=== PATIENT | female | born 1960 | race Caucasian/White ===

== ENCOUNTER → 2016-11-20 | Outpatient (CLI) | payer OTHER, SELFPAY ==
[~2016-11-20] MED LIST: ACIPHEX20 MG PO; ALLOPURINOL300 MG; ALLOPURINOL300 MG PO; ANUSOL-HC SUPP25 M1 PR; ASPIRIN325 M1 PO; ATENOLOL PO; BACTRIM DS TABL1 TA1 PO; BIOTIN2500 MCG PO; CENTRUM SILVER PO; COLACE50 MG PO; CYMBALTA PO; DULOXETINE HCL30 MG PO; FLAGYL PO; FUROSEMIDE40 MG PO; KCL PO; LASIX PO; LORTAB 10-3251 EACH PO; LORTAB 7.5-5001 TAB PO; LOVENOX40 MG/0.4 INJ; LYRICA PO; LYRICA100 MG PO; MILK OF MAGNESIA PO; NEURONTIN800 MG PO; NORCO 10/3251 TAB PO; PERCOCET5/325 PO; PROTONIX PO; TENORMIN50 MG PO; TOPAMAX25 MG PO; VOLTAREN75 MG PO; ZOFRAN ODT4 MG PO; ZYLOPRIM100 MG PO; ZYRTEC10 M2 PO; [UNRECOGNIZED DRUG - OTHER] PO
--- NOTE | ~2016-11-20 | MR190 ---
[facility] A Service of [facility] & [facility] RADIOLOGY TEXT RESULTS PATIENT: SARAH JACQUES LOCATION: [facility] : 58 UNIT #: [id number] AGE: [address]: Rosi Tobni SEX: F ORDER DR: [id number] [facility] [address] [place], [place] [address] [id number] O MR#: [id number] Acc #: [id number] NAME: SARAH JACQUES : 1960 SEX: F STUDY DATE/TIME: 11/20/2016 14:04 UNIT: [facility] ROOM: STUDY DESCRIPTION: MR Shoulder Arthrogram Lt Attending Physician: Rosi Tobin P.A.-C. Ordering Physician: Rosi Tobin P.A.-C. Primary Care Physician: Carla Prajapati M.D. MRI CENTER REPORT This report is preliminary unless electronic signature is present. EXAM MR arthrogram left shoulder HISTORY 56-year-old female complains of left shoulder pain, weakness, decreased range of motion since July 2015. States may be used to over use of cane after knee surgery in July. No specific trauma. COMPARISON Conventional arthrogram 11/20/2016. FINDINGS Routine MR arthrogram was performed of the left shoulder following the intraarticular injection of dilute gadolinium. There is moderately advanced glenohumeral joint osteoarthritis with prominent osteophytes along the inferior posterior aspect of the humeral head. Extensive full-thickness cartilage loss noted off the glenoid and humeral head articular surface. Extensive degeneration of the posterior labrum. Contrast is visible within the glenohumeral joint and also within the subacromial subdeltoid bursa. This implies a full-thickness rotator cuff tear but a distinct site of tear is not well visualized. Patient does demonstrate diffuse rotator cuff tendinopathy with an extensive partial-thickness articular sided tear of the supraspinatus tendon which may represent a delaminating type tear. This extends over approximately 2 cm length of the supraspinatus tendon. There is apparent direct contrast imbibition within the superior aspect of the subscapularis tendon. This may be related to the joint injection or possibly a partial tear. There is evidence of glenohumeral joint synovitis but no sizeable loose bodies. The ABER view demonstrates a poorly defined anteroinferior labrum and this may be degenerated as a component of glenohumeral joint osteoarthritis. The long tendon of the biceps appears attenuated along its intraarticular aspect but appears to be intact. It is not well seen within the bicipital groove though this may be partly technical. Deltoid unremarkable. Mild STS. [facility] A Service of [facility] RADIOLOGY TEXT RESULTS PATIENT: SARAH JACQUES LOCATION: [facility] : 58 UNIT #: [id number] AGE: [address]: Rosi Tobin SEX: F ORDER DR: VAN joint arthropathy. IMPRESSION 1. Extensive supraspinatus tendinopathy with a large partial-thickness and possibly full thickness delaminating tear of the supraspinatus tendon. It is difficult to explain the presence of contrast within the subacromial-subdeltoid bursa on the basis of the MR though this may be related to either a mixed injection or a delaminating tear of the supraspinatus tendon. There is clearly no retracted full-thickness tear of the rotator cuff. The tear within the supraspinatus does extend to the articular surface and measures close to 2 cm in length and this is superimposed on tendinopathy. Again a discrete communication to the subacromial-subdeltoid bursa is not seen, though this may be related to delaminating type tear. 2. Moderately advanced glenohumeral joint osteoarthritis with glenohumeral joint synovitis. 3. Circumferential degeneration of the labrum as a component of arthritis. 4. Attenuation of the long tendon of the biceps may reflect chronic tendinopathy. 5. Focal imbibition of contrast in the superior aspect of the subscapularis tendon. I suspect this is iatrogenic related to the joint injection. This could possibly explain the presence of contrast within both the glenohumeral joint and subacromial subdeltoid bursa, possibly related to extravasation through the subscapularis. 6. Mild infraspinatus tendinopathy. Dictated by... Randolph Walls M.D. THIS IS AN ELECTRONICALLY VERIFIED REPORT Randolph Walls M.D. at 11/22/2016 9:37 AM NATA/nani TD: 11/21/2016 09:20 JOB #: [id number] MRI CENTER REPORT Page 1 of 1 COPY
--- NOTE | ~2016-11-20 | XA32 ---
[facility] A Service of [facility] & [facility] RADIOLOGY TEXT RESULTS PATIENT: SARAH JACQUES LOCATION: [facility] : 58 UNIT #: [id number] AGE: [address]: Rosi Tobin SEX: F ORDER DR: [id number] [facility] [address] [place], [place] [address] [id number] O MR#: [id number] Acc #: [id number] NAME: SARAH JACQUES. : 1960 SEX: F STUDY DATE/TIME: 11/20/2016 13:17 UNIT: [facility] ROOM: STUDY DESCRIPTION: XA Arthrogram Shoulder Lt Attending Physician: Rosi Tobin P.A.-C. Ordering Physician: Rosi Tobin P.A.-C. Primary Care Physician: Carla Prajapati M.D. MEDICAL IMAGING REPORT This report is preliminary unless electronic signature is present EXAM Left shoulder arthrogram HISTORY SUPPLIED Chronic left shoulder pain TECHNIQUE The procedure and attendant risks and options were discussed with the patient. This was performed in conjunction with the MR facility. The MR will be reported separately. The procedure risks were discussed. Skin was prepped and draped over the left shoulder joint over the lower third of the glenohumeral joint. A 22-gauge needle was advanced under fluoroscopy into the joint. Maximal sterile barrier technique was utilized including drapes and sterile gloves. Approximately 8 mL of contrast media of lidocaine was injected directly into the joint. FINDINGS The study shows a markedly irregular joint capsule particularly along the humeral attachment. The study shows what appears to be some loose bodies in the inferior aspect of the joint. The needle was removed and shoulder joint was manipulated are there is clear communication with the subdeltoid bursa. Patient was taken to MR and will be imaged separately. Please see that report. CONCLUSION Markedly abnormal shoulder arthrogram showing some features of adhesive capsulitis and also raising the question of loose bodies in the joint. Additionally the patient does have a full-thickness rotator cuff tear. Please see the MR performed on the 11/20/2016, immediately following this [facility] A Service of [facility] & [facility] RADIOLOGY TEXT RESULTS PATIENT: SARAH [facility]ACQU[id number] : 58 UNIT #: [id number] AGE: [address]: Rosi Tobin SEX: F ORDER DR: study. Dictated by... Venkata Jacobs M.D. THIS IS AN ELECTRONICALLY VERIFIED REPORT Venkata Jacobs M.D. at 11/22/2016 7:19 AM MENDY/pranav TD: 11/20/2016 17:34 JOB #: [id number] MEDICAL IMAGING REPORT Page 1 of 1 COPY
== END | disposition home or self-care (01) ==
LOC: CIVR 12:15
DX: M75.82 Other shoulder lesions, left shoulder (principal); M75.02 Adhesive capsulitis of left shoulder; M75.112 Incomplete rotator cuff tear or rupture of left shoulder, not specified as traumatic; M19.012 Primary osteoarthritis, left shoulder; M65.812 Other synovitis and tenosynovitis, left shoulder
CPT/HCPCS: 73040; 73222; 77002; A9577; Q9967

== ENCOUNTER 2016-12-19 19:59 | Inpatient (IN) | payer OTHER, SELFPAY ==
--- NOTE | ~2016-12-19 | BMI ---
[facility] Nutrition Therapy DATE: 12/21/16 Patient: SARAH WILLISUGHN Physician: SHAKEEL Address: [address] [place] [address] Room/Bed: [address] [place] [address], Zip: [place] [address] Admit Date: 12/19/16 Date of : 58 Height: 5 7 Weight: 317 144 HIGH BMI NOTE: DX: 56 y/o female admitted with R ankle fracture ANTHROPOMETRICS: Ht: 67", Wt: 144 kg, BMI: 49 (Stage III obese) DIET: Regular INTERVENTION: Healthy heart diet, meds/fluids per MD RECOMMENDATIONS: Consider changing diet to healthy heart to promote a gradual weight loss towards a healthy BMI range. Respectfully, Karen Nicole RD, LD Food and Nutritional Services [facility] cc: client file
--- NOTE | ~2016-12-19 | CR18 ---
[facility] A Service of [facility] & [facility] RADIOLOGY TEXT RESULTS PATIENT: SARAH JACQUES LOCATION: [facility] : 58 UNIT #: [id number] AGE: [address]: Obed Espinosa MD SEX: F ORDER DR: [id number] [facility] [address] [place], [place] [address] [id number] I MR#: [id number] Acc #: [id number] NAME: SARAH JACQUES : 1960 SEX: F STUDY DATE/TIME: 12/19/2016 21:00 UNIT: [facility] ROOM: [address] STUDY DESCRIPTION: CR Ankle 2 Views Rt Attending Physician: Lu Espinosa M.D. Referring Physician: Jose A Tellez M.D. Ordering Physician: Kathy Ortega M.D. Primary Care Physician: Carla Prajapati M.D. MEDICAL IMAGING REPORT This report is preliminary unless electronic signature is present EXAM Right ankle series, 12/19/2016. HISTORY Fall. Right ankle pain and swelling. Twisted ankle and fell down. FINDINGS AP, lateral and oblique radiographs of the right ankle are presented. No prior right ankle series for comparison. There is a mildly comminuted complete oblique fracture distal shaft of the right fibula just above the lateral malleolus. Dominant distal fragment distracted laterally by up to about 8-9 mm and posteriorly by up to about 8-9 mm. Posterior angulation of the dominant distal fracture fragment. There is marked anterior/medial subluxation of the distal tibia relative to the talar dome. I do not believe that there is natalie complete dislocation of the tibiotalar joint but there is marked anteromedial subluxation. There is cortical irregularity along the distal medial cortex of the tibia. Small fracture fragments may represent small chip or avulsion fractures along insertion of the intraosseous membrane. There is an approximately 5 mm calcification located between the medial aspect of the medial malleolus and the medial aspect of the talus favored to represent avulsion fracture probably from the lateral cortex of the medial malleolus. These findings could be further evaluated with CT if it would assist in patient management. Degenerative changes suggested in the partially visualized mid foot. Plantar calcaneal spur. Marked circumferential soft tissue swelling around the ankle and dorsal aspect of the visualized foot. No soft tissue defect, subcutaneous air or radiodense foreign body. Dictated by... Venkata Murdock M.D. [facility] A Service of [facility] RADIOLOGY TEXT RESULTS PATIENT: SARAH JACQUES LOCATION: [place] [address]- : 58 UNIT #: [id number] AGE: [address]: Obed Espinosa MD SEX: F ORDER DR: THIS IS AN ELECTRONICALLY VERIFIED REPORT Venkata Murdock M.D. at 12/20/2016 10:27 PM Km TD: 12/20/2016 02:03 JOB #: [id number] MEDICAL IMAGING REPORT Page 1 of 1 COPY
--- NOTE | ~2016-12-19 | OR ---
Unit #: [id number] #: [id number] Patient: SARAH MOSER [id number] [address] [place], [place] [address] [id number] I MR#: [id number] NAME: SARAH MOSER. ROOM: 452 Date of Procedure: 12/20/2016 Admission Date: 12/19/2016 Surgeon: Medardo Siegel M.D. : 1960 Attending Physician: Lu Espinosa M.D. Primary Care Physician: Carla Prajapati M.D. OPERATIVE REPORT PREOPERATIVE DIAGNOSES 1. Right bimalleolar ankle fracture involving lateral and posterior malleolus. 2. Right ankle deltoid ligament rupture. 3. History of bilateral lower extremity peripheral neuropathy. 4. Morbid obesity. POSTOPERATIVE DIAGNOSES 1. Right bimalleolar ankle fracture involving lateral and posterior malleolus. 2. Right ankle deltoid ligament rupture. 3. History of bilateral lower extremity peripheral neuropathy. 4. Morbid obesity. PROCEDURES PERFORMED 1. Open reduction and internal fixation of right lateral malleolus. 2. Placement of syndesmotic screw x3. 3. Right ankle deltoid ligament repair. [employer] Snehal Cao APRN, TOMÁS. ANESTHESIA General. ESTIMATED BLOOD LOSS Less than 5 mL. TOURNIQUET TIME 120 minutes. INDICATIONS FOR PROCEDURE Ms. Moser is a 56-year-old female, who sustained an injury to her right foot during a ground level fall. She has a known history of an unspecified peripheral neuropathy. She has no history of diabetes, but did have a B12 deficiency. As a result, has a Charcot foot on the left. She is in a CAM walker boot. When she was attempting to enter her car and fell fracturing her right ankle. She sustained a trimalleolar equivalent ankle injury with a fracture of the lateral malleolus and posterior malleolus with widened medial clear space consistent with a deltoid ligament rupture. We discussed operative intervention with fixation of her lateral malleolus and deltoid ligament repair. Additionally, we Unit #: [id number] #: [id number] Patient: SARAH MOSER discussed syndesmotic stabilization given her neuropathy and Charcot foot deformity on the left. She voiced agreement and understanding and elected to proceed. DESCRIPTION OF PROCEDURE The patient was identified in the preoperative holding area. The operative site was marked. A regional anesthetic block was performed. The patient was brought to the operating room and placed supine on the operating table. A general anesthetic was induced. A bump was placed under the right hip. The right lower extremity was identified in a formal time-out. A tourniquet was applied to the right thigh. The right leg was then prepped and draped in sterile fashion. The leg was exsanguinated and the tourniquet inflated. An incision was made over the lateral aspect of the fibula. Dissection was carried down through the subcutaneous tissues. The superficial branch of the peroneal nerve was noted traversing the operative field. This was dissected out with tenotomy scissors and transposed anteriorly. The fibula fracture was identified and reduced with lobster claw clamps and provisionally pinned. This was a short oblique fracture. This would be amenable to lag screw fixation; however, the posterior aspect of this was fractured out in separate butterfly fragment. This was provisionally pinned in place again with K-wires. The plate of the desired size was then selected and applied to the distal fibula. This was secured distally with one locking screw and then the shaft with one fully-threaded cortical nonlocking screw. The plate placement and reduction was assessed under C-arm imaging, was confirmed to be anatomic. We then drilled syndesmotic screw across four cortices just proximal to the fracture site. We then placed distal locking screws in the distal portion of the plate. Attention was then turned back to the shaft. I removed the one bicortical screw and placed a total of three syndesmotic screws across four cortices. We then placed two more bicortical screws in the fibula proximally. The fracture was assessed on both AP and lateral images. It was confirmed to be anatomically reduced. The syndesmotic screws were confirmed to be in the tibia. An incision was then made over the medial aspect of the ankle in the medial malleolus. Dissection was carried down through subcutaneous tissues. The deltoid ligament was noted to be ruptured. This was essentially a midsubstance rupture. The deltoid ligament was repaired with #2 FiberWire in an interrupted [id number] fashion. It should be noted that the talus was visualized and there was no intervening or interposed tissue in the medial gutter. There was no chondral lesion noted in the visualized portions of the talus. Once the deltoid ligament was repaired, final images were obtained and this confirmed anatomic reduction. The wound was then irrigated both medial and lateral aspects and closed in a layered fashion with 2-0 Vicryl and nylon medially. Laterally, we were able to use 0 Vicryl to cover the plate along with 2-0 Vicryl and 3-0 nylon on the skin. The patient was placed in a well-padded posterior splint. DISPOSITION Stable to the recovery room. Dictated by... Medrado Siegel M.D. Unit #: [id number] #: [id number] Patient: HERMINIO MOSERKIE Addison VINSON/serena TD: 12/21/2016 01:05 JOB #: [id number] OPERATIVE REPORT Page 1 of 1 X Medardo Siegel MD X PROCEDURE OPERATIVE NOTE
--- NOTE | ~2016-12-19 | DS ---
Unit #: [id number] #: [id number] Patient: SARAH MOSER [id number] [address] [place], [place] [address] [id number] I MR#: [id number] NAME: SARAH MOSER ROOM: 45 Age: 56 Sex: F Admission Date: 12/19/2016 : 1960 Discharge Date: 12/22/2016 Attending Physician: Lu Espinosa M.D. Primary Care Physician: Carla Prajapati M.D. DISCHARGE SUMMARY ADMITTING DIAGNOSIS Right bimalleolar ankle fracture involving the lateral and posterior malleolus. DISCHARGE DIAGNOSIS Right bimalleolar ankle fracture status post open reduction and internal fixation. SECONDARY DIAGNOSES 1. Bilateral lower extremity peripheral neuropathy. 2. Morbid obesity. 3. Hypertension. 4. Chronic pain disorder. 5. Depressive disorder. 6. Charcot arthropathy of the left foot. 7. Bilateral shoulder osteoarthritis. PROCEDURES PERFORMED On 12/20/2016 the patient underwent an ORIF of bimalleolar ankle fracture with right ankle deltoid ligament repair. Please see operative report for further details. BRIEF HISTORY Ms. Moser is a 56-year-old female who sustained an injury to her right foot during a ground-level fall. She has a known history of bilateral lower extremity peripheral neuropathy. She also has Charcot foot on the left lower extremity. She was in a Cam Walker Boot at the time of the injury. She was attempting to get in her car when she fell and fractured her right ankle. She was then admitted by Dr. Siegel for right ankle fracture. He recommended an ORIF right ankle fracture on 12/20/2016. The risks, benefits and alternatives were discussed with the patient. She elected to proceed with surgery. HOSPITAL COURSE After surgery, the patient was admitted to the orthopedic unit for postoperative care. The night of surgery was uneventful, and the patient remained stable. On postop day #1, the patient's vital signs remained stable. She was awake, alert, oriented x3, in no acute distress. She was complaining of right ankle pain that was uncontrolled with her current pain medication regimen. Her pain medications were then increased for better pain control. Her right lower extremity was in a posterior splint. The splint was clean, dry and intact. She was able to move all 5 digits. She had Unit #: [id number] #: [id number] Patient: SARAH OMSER decreased sensation to light touch in all 5 digits, which is baseline secondary to peripheral neuropathy. The calf was soft and nontender. She was placed on Lovenox and a left lower extremity SCD for DVT prophylaxis. She worked with physical therapy. The meeting/event planner was consulted for rehab placement. On postop day #2, the patient's vital signs remain stable. She is awake, alert, oriented x3, in no acute distress. Her pain in the right lower extremity is controlled on her current pain medication regimen. The right lower extremity remains in the posterior splint. The splint remains clean, dry and intact. She is able to move all 5 digits. She has decreased sensation to light touch in all 5 digits, which is baseline secondary to peripheral neuropathy. The calf is soft and nontender. We will plan to have her work with physical therapy again this morning. Later today, she will be discharged to rehab. CONDITION AT DISCHARGE Stable. DISPOSITION The patient will be discharged to rehab later today. DISCHARGE MEDICATIONS 1. Lyrica 300 mg p.o. b.i.d. 2. Topamax 100 mg p.o. at bedtime. 3. Duloxetine 90 mg p.o. at bedtime. 4. Atenolol 100 mg p.o. daily. 5. Lasix 40 mg p.o. b.i.d. p.r.n. swelling. 6. Allopurinol 100 mg p.o. q.48 hours. 7. Multivitamin daily. 8. Potassium chloride 10 mEq p.o. b.i.d. as needed with Lasix. 9. Biotin 2,500 mcg p.o. b.i.d. 10. Xarelto 10 mg p.o. daily x14 days. 11. Laie 10/325 mg 1-2 tabs p.o. q.4 hours p.r.n. NOTE: The patient was sent to rehab with prescriptions for Xarelto to dispense 14 tabs, as well as Laie to dispense 120 tabs. DISCHARGE FOLLOWUP AND INSTRUCTIONS The patient will remain nonweightbearing of the right lower extremity and in her posterior splint. She is not to get the splint wet. The splint may be reinforced as needed. She will follow up with Dr. Siegel in 2 weeks' time for repeat x-rays of the right ankle. She will remain on Xarelto for 2 weeks for DVT prophylaxis. Dictated by... Marisela Siddiqi APRN for Yokasta Barr/jyoti TD: 12/22/2016 08:32 JOB #: [id number] Unit #: [id number] #: [id number] Patient: HERMINIO MOSERKIE Addison DISCHARGE SUMMARY Page 1 of 1 X MARISELA SIDDIQI APRN X DISCHARGE SUMMARY
--- NOTE | ~2016-12-19 | HP ---
Unit #: [id number] #: [id number] Patient: SARAH MOSER [id number] [address] [place], [place] [address] [id number] I MR#: [id number] NAME: SARAH MOSER ROOM: 45 Age: 56 Sex: F Admission Date: 12/19/2016 : 1960 Attending Physician: Lu Espinosa M.D. Primary Care Physician: Carla Prajapati M.D. HISTORY AND PHYSICAL CHIEF COMPLAINT Right ankle fracture dislocation. HISTORY OF PRESENT ILLNESS Ms. Moser is a 56-year-old female with a past history significant for a peripheral neuropathy resulting in Charcot arthropathy of the left foot. She generally ambulates in a Cam walker boot as a result. She was attempting to enter her car when she swung her left leg up into the doorway of the vehicle. She lost her balance and fell twisting her right ankle. She sustained a right ankle fracture dislocation. She has now been admitted for planned surgical intervention. The patient is examined supine in the emergency department stretcher. She reports pain in the right ankle. She has already undergone a closed reduction and is in a splint. She has some relief of pain with narcotic pain medication and with splint immobilization. She has pain with any attempt at movement or range of motion of the foot. PAST MEDICAL HISTORY 1. Morbid obesity. 2. Hypertension. 3. Peripheral neuropathy. 4. Chronic pain disorder. 5. Depressive disorder. PAST SURGICAL HISTORY 1. Hysterectomy. 2. Lap-Band. 3. Unspecified jaw surgery. 4. Right total knee replacement. 5. Tonsillectomy. HOME MEDICATIONS 1. Atenolol. 2. Lyrica. 3. Duloxetine. 4. Zyloprim. 5. Brayton. 6. Topamax. 7. K-Audra. ALLERGIES Listed intolerance to morphine. Unit #: [id number] #: [id number] Patient: SARAH MOSER SOCIAL HISTORY No alcohol, tobacco or drug use. FAMILY HISTORY Noncontributory to the current illness. PHYSICAL EXAMINATION GENERAL APPEARANCE: Morbidly obese female examined supine in hospital bed. PSYCHIATRIC: Awake, alert and oriented to person, place, time and situation with a normal range of mood and affect. LUNGS: No increased work of breathing. Symmetric chest rise. HEART: Regular rate and rhythm. ABDOMEN: Obese, nondistended. NEUROLOGIC: Decreased sensation in the lower extremities consistent with peripheral neuropathy. VASCULAR: Her toes are warm and well perfused. There is brisk capillary refill. LYMPHATICS: No lymphadenopathy or lymphedema is noted. MUSCULOSKELETAL: She is in a posterior splint with a stirrup on the right. This is not taken down for further range of motion or exam. DIAGNOSTIC STUDIES IMAGING: Plain film radiographs reviewed of the right ankle. These demonstrate a lateral and posterior malleolar fracture with a deltoid ligament rupture with subluxation of the talus laterally relative to the tibia. She has a profoundly widened medial clear space. IMPRESSION Right trimalleolar ankle equivalent in a 56-year-old female with peripheral neuropathy and a history of Charcot arthropathy in the contralateral lower extremity. PLAN She has undergone a closed reduction. Her fracture will require fixation of the lateral malleolar fragment. The posterior malleolar fragment will not require any surgical fixation. The medial side will be addressed with an open deltoid ligament repair. We have discussed the dressing as with multiple syndesmotic screws given her neuropathy and development of a Charcot foot on the left. She understands the risk of possibly developing a Charcot foot on the right as well as otherwise nonunion, malunion, failure of fixation including need for future surgery even up to and including the possible need for future amputation in the event of poor healing of this current fracture. We have discussed with her that she should be strictly nonweightbearing on this extremity and I discussed with her in detail the implications as noted above of early weightbearing. She voices agreement and understanding of this stated procedure and elects to proceed. Dictated by Yokasta Barr/ileana TD: 12/20/2016 20:13 JOB #: [id number] Unit #: [id number] #: [id number] Patient: SARAH MOSER HISTORY AND PHYSICAL Page 1 of 1 X Medardo Siegel MD HISTORY AND PHYSICAL
--- NOTE | ~2016-12-19 | CR18 ---
[facility] A Service of [facility] & [facility] RADIOLOGY TEXT RESULTS PATIENT: SARAH JACQUES LOCATION: [place] [address] : 58 UNIT #: [id number] AGE: [address]: Obed Espinosa MD SEX: F ORDER DR: [id number] [facility] [address] [place], [place] [address] [id number] I MR#: [id number] Acc #: [id number] NAME: SARAH JACQUES : 1960 SEX: F STUDY DATE/TIME: 12/20/2016 16:10 UNIT: [facility] ROOM: [facility] STUDY DESCRIPTION: CR Ankle 2 Views Rt Attending Physician: Lu Espinosa M.D. Ordering Physician: Medardo Siegel M.D. Primary Care Physician: Carla Prajapati M.D. MEDICAL IMAGING REPORT This report is preliminary unless electronic signature is present EXAM Intraoperative spot films right ankle 3 views HISTORY Ankle fracture with internal fixation. Fluoroscopy time 1 minute, 35 seconds. FINDINGS 7 fluoroscopic intraoperative spot films of the right ankle demonstrate lateral side plate and screw fixation of the distal fibula extending across comminuted oblique fracture of the distal fibular shaft with additional fixation screws extending into the adjacent distal tibial shaft. Bone alignment is satisfactory. Bone detail is partly limited. Dictated by... Arturo Mcclure M.D. THIS IS AN ELECTRONICALLY VERIFIED REPORT Arturo Mcclure M.D. at 12/20/2016 11:19 PM DFL/pcl TD: 12/20/2016 20:34 JOB #: [id number] MEDICAL IMAGING REPORT Page 1 of 1 COPY
--- NOTE | ~2016-12-19 | CR18 ---
[facility] A Service of [facility] & [facility] RADIOLOGY TEXT RESULTS PATIENT: SARAH JACQUES LOCATION: [place] [id number] : 58 UNIT #: [id number] AGE: [address]: Obed Espinosa MD SEX: F ORDER DR: [id number] [facility] [address] [place], [place] [address] [id number] I MR#: [id number] Acc #: [id number] NAME: SARAH JACQUES : 1960 SEX: F STUDY DATE/TIME: 12/19/2016 23:03 UNIT: [facility]ED ROOM: [id number] STUDY DESCRIPTION: CR Ankle 2 Views Rt Attending Physician: Lu Espinosa M.D. Ordering Physician: Kathy Ortega M.D. Primary Care Physician: Carla Prajapati M.D. MEDICAL IMAGING REPORT This report is preliminary unless electronic signature is present EXAM Right ankle INDICATIONS Right ankle fracture. Closed reduction. FINDINGS 2 views of the right ankle are compared to 12/19/2016 at 21:03. There is improved alignment of the right ankle status post closed reduction. There is still one-half shaft width lateral displacement of the fibular fracture. There is lateral subluxation of the talus by approximately 1.5 cm. This has significantly improved. There are multiple osseous fracture fragments. IMPRESSION Improved anatomic alignment status post closed reduction, however, there is still 1.5 cm of lateral subluxation of the talus and lateral displacement of the distal fibular fracture. Dictated by... Carlitos Jorgensen M.D. THIS IS AN ELECTRONICALLY VERIFIED REPORT Carlitos Jorgensen M.D. at 12/20/2016 4:04 AM RPC/lorraine TD: 12/20/2016 03:01 JOB #: [id number] MEDICAL IMAGING REPORT Page 1 of 1 COPY
--- NOTE | ~2016-12-19 | CR253 ---
[facility] A Service of [facility] & [facility] RADIOLOGY TEXT RESULTS PATIENT: SARAH JACQUES LOCATION: [facility] [address] : [birth year] UNIT #: [id number] AGE: [address]: Obed Espinosa MD SEX: F ORDER DR: [id number] [facility] [address] [place], [place] [address] [id number] I MR#: [id number] Acc #: [id number] NAME: SARAH JACQUES : 1960 SEX: F STUDY DATE/TIME: 12/19/2016 21:03 UNIT: [facility]ED ROOM: [id number] STUDY DESCRIPTION: CR Tibia and Fibula 2 Views Rt Attending Physician: Lu Espinosa M.D. Referring Physician: Jose A Tellez M.D. Ordering Physician: Kathy Ortega M.D. Primary Care Physician: Carla Prajapati M.D. MEDICAL IMAGING REPORT This report is preliminary unless electronic signature is present EXAM Tibia-fibula series, 12/19/2016. HISTORY Fall. Twisted ankle and fell down, right ankle pain and swelling. FINDINGS AP and lateral views of the tibia and fibula are presented. Please see associated right ankle series dictated separately. Right knee arthroplasty. Orthopedic hardware intact normally aligned and located. Distal right femur otherwise unremarkable. There is oblique mildly comminuted fracture distal shaft right fibula. This is just above the lateral malleolus. The distal fibular/lateral malleolar fragment is angled posteriorly, displaced posteriorly by up to about 1 cm and displaced laterally by up to about 9 mm. There is some lateral angulation as well. Along the lateral aspect of the distal tibia at the articular surface there is a cortical irregularity concerning for nondisplaced fracture with fragment probably measuring on the order of about 6 mm. There is a 5 mm calcification along the medial aspect of the talus concerning for avulsion fracture from medial malleolus or from the medial aspect of the talus. Exact donor site unclear. There is marked anteromedial subluxation of the distal tibia relative to the talar dome. Visualized hind foot appears otherwise intact with a plantar calcaneal spur and probable chronic pes planus configuration. There is marked soft tissue swelling around the ankle and dorsal aspect of the visualized foot. There is a chronic soft tissue calcification in the pretibial soft tissues of the distal foreleg. There is no soft tissue defect, subcutaneous air or nonorthopedic radiodense foreign body. Dictated by... [facility] A Service of [facility] RADIOLOGY TEXT RESULTS PATIENT: SARAH JACQUES LOCATION: [place] [address]- : [birth year] UNIT #: [id number] AGE: [address]: Obed Espinosa MD SEX: F ORDER DR: Venkata Murdock M.D. THIS IS AN ELECTRONICALLY VERIFIED REPORT Venkata Murdock M.D. at 12/20/2016 10:27 PM Km TD: 12/20/2016 01:50 JOB #: [id number] MEDICAL IMAGING REPORT Page 1 of 1 COPY
[~2016-12-19 19:59] MED LIST changes: -LORTAB 10-3251 EACH PO
[2016-12-19 22:37] LABS: BASOPHIL# 0.1 X10e3 (0-0.3); BASOPHIL% 0.6 % (0-2.5); EOSINOPHIL# 0.1 X10e3 (0-0.7); HEMATOCRIT 41.2 % (35.0-45.0); HEMOGLOBIN 13.2 gm/dL (12.0-16.0); LYMPHOCYTE# 3.3 X10e3 (1.0-3.5); LYMPHOCYTE% 29.8 % (17.0-45.0); MEAN CELL VOLUME 88.2 FL (83-96); MEAN CORPUSCULAR HEMOGLOBIN 28.2 PG (28-34); MEAN PLATELET VOLUME 8.8 FL (6.5-11.5); MONOCYTE# 1.5 X10e3 (0-1.0); MONOCYTE% 13.1 % (3.0-12.0); NEUTROPHIL# 6.2 X10e3 (1.5-7.1); NEUTROPHIL% 55.5 % (40-75); PLATELET COUNT 233 X10e3 (140-420); RED BLOOD COUNT 4.67 X10e (3.90-5.30); WHITE BLOOD COUNT 11.2 X10e3 (4.0-10.5)
[2016-12-19 22:38] LABS: DIFF IND NO
[2016-12-19 23:12] LABS: ALBUMIN SERUM 3.6 g/dL (3.5-5.0); BILIRUBIN,TOTAL 0.2 mg/dL (0.2-2.0); BUN/CREATININE RATIO 12.22; CREATININE SERUM 0.9 mg/dL (0.6-1.4); POTASSIUM 3.2 mmol/L (3.5-5.1)
[2016-12-20] MEDS ORDERED: LORTAB 10-3251 EACH PO (08:53)
== END 2016-12-22 16:30 | DRG 493 ==
LOC: CED 19:59 → CEDOF 22:15 → CED 23:19 → C4B 12-20 08:24 → CEDOF 12-20 08:24 → C4B 12-20 08:24
PROVIDERS: Emergency Medicine; Orthopaedic Surgery
PROC: 0QSJXZZ Reposition Right Fibula, External Approach (ICD-10-PCS; 2016-12-19)
PROC: 0MQQ0ZZ Repair Right Ankle Bursa and Ligament, Open Approach (ICD-10-PCS; 2016-12-20)
PROC: 0QSJ04Z Reposition Right Fibula with Internal Fixation Device, Open Approach (ICD-10-PCS; principal; 2016-12-20 15:00)
DX: S82.841A Displaced bimalleolar fracture of right lower leg, initial encounter for closed fracture (principal); Z68.42 Body mass index [BMI] 45.0-49.9, adult; I10 Essential (primary) hypertension; S93.421A Sprain of deltoid ligament of right ankle, initial encounter; V48.4XXA Person boarding or alighting a car injured in noncollision transport accident, initial encounter; M14.672 Charcot's joint, left ankle and foot; G62.9 Polyneuropathy, unspecified; E66.01 Morbid (severe) obesity due to excess calories; G89.29 Other chronic pain; F32.9 Major depressive disorder, single episode, unspecified; M19.012 Primary osteoarthritis, left shoulder; M19.011 Primary osteoarthritis, right shoulder; Z90.710 Acquired absence of both cervix and uterus; Z98.84 Bariatric surgery status; Z96.651 Presence of right artificial knee joint
CPT/HCPCS: 73590; 73600; 76001; 80053; 85025; 85610; 94010; 96374; 96375; 97116; 97161; 97530; 99285; C1713; G8978-GP; G8979-GP; G8980-GP; J0131; J0690; J1170; J1200; J1650; J2250; J2270; J2405; J2795; J3010